=== PATIENT | male | born 1980 | race Caucasian/White ===

== ENCOUNTER 2017-09-06 15:53 | Emergency (ER) | payer MEDICARE, OTHER ==
[~2017-09-06] VITALS: Ht 175.3 cm; Wt 127.5 kg
[~2017-09-06 15:53] MED LIST: ARIP15; ARIP20 PO; CLIN150 PO; CLON.5 PO; CODACE30 PO; CYCL10 PO; FLUO10 PO; HYDACE5 PO; IBUP800 PO; Monodox100 MG PO; Motrin600 MG PO; NAPR500 PO; PENVK500 PO; RXCLIN PO; RXCODACET PO; RXHYDACE PO; RXPENVK250 PO; TRAZ100; TRAZ50 PO; ZOLP5 PO; Zyprexa10 MG PO; [UNRECOGNIZED DRUG - REMARK] PO
== END 2017-09-06 18:40 | disposition left against medical advice (07) ==
LOC: ER 15:53
DX: Z53.21 Procedure and treatment not carried out due to patient leaving prior to being seen by health care provider (principal)
CPT/HCPCS: 73610; 73630; 99283